=== PATIENT | female | born 1950 | race Caucasian/White ===

== ENCOUNTER 2020-11-21 11:09 | Emergency (ER) | payer MEDICARE ==
[~2020-11-21] VITALS: Ht 167.6 cm; Wt 74.4 kg
[~2020-11-21 11:09] MED LIST: CRESTOR; LEXAPRO; LORAZEPAM; NEXIUM; PLAVIX; VICODIN; WELLBUTRIN
== END 2020-11-21 12:00 | disposition left against medical advice (07) ==
LOC: ER 11:31
DX: M19.032 Primary osteoarthritis, left wrist (principal); K21.9 Gastro-esophageal reflux disease without esophagitis; F41.9 Anxiety disorder, unspecified; F32.9 Major depressive disorder, single episode, unspecified; Z79.02 Long term (current) use of antithrombotics/antiplatelets